=== PATIENT | female | born 1980 | race African-American/Black ===

== ENCOUNTER 2022-07-19 07:25 | Emergency (ER) | payer SELFPAY ==
[2022-07-19 08:17] LABS: CORONAVIRUS COVID-19 NAA NEGATIVE (NEGATIVE)
== END 2022-07-19 09:57 | disposition home or self-care (01) ==
LOC: JD.ED 07:25
DX: J20.9 Acute bronchitis, unspecified (principal); Z20.822 Contact with and (suspected) exposure to COVID-19; F17.210 Nicotine dependence, cigarettes, uncomplicated
CPT/HCPCS: 0241U; 71045; 99283